=== PATIENT | male | born 1955 | race Caucasian/White ===

== ENCOUNTER 2018-03-27 14:33 | Emergency (ER) | payer OTHER ==
[2018-03-27 14:39] VITALS: BP 124/84; PULSE 71; TEMP 97.8; BMI 24.3
[2018-03-27] MEDS ORDERED: AMPICILLIN NA/SULBACTAM NA 3 GM VIAL ONE (15:41)
[2018-03-27] MEDS ORDERED: AMPICILLIN NA/SULBACTAM NA 3 GM in SODIUM CHLORIDE 100 ML IVPB ONE (15:45)
[2018-03-27] MEDS ORDERED: DIPHTH,PERTUSS(ACELL),TET 0.5 ML DISP.SYRIN IM ONE (15:48)
--- NOTE | 2018-03-27 16:25 | PDOC ---
History of Present Illness - General History Source: Patient Exam Limitations: No Limitations - History of Present Illness Initial Comments: 03/27/18 16:27 The patient is a 62 year old male, with a significant PMH of Type 2 diabetes ( recently diagnosed 4 months ago), who presents to the emergency department for evaluation of a dog bite that occurred yesterday. The patient states his friends dog bit him on the left posterior hand. The patient reports he scrubbed area thoroughly yesterday but pain progressively worsened today with associated erythema and edema. The patient denies any numbness or tingling. Denies fevers chills, and nausea Allergies: NKDA Past surgical history: None reported Social history: None reported PCP: Barrie Rivera <Tasha Khan - Last Filed: 03/27/18 16:30> <Tashi Loya - Last Filed: 03/27/18 17:30> - General Chief Complaint: Bite Stated Complaint: LEFT HAND DOG BITE Time Seen by Provider: 03/27/18 15:54 Past History <Tasha Khan - Last Filed: 03/27/18 16:30> - Past Medical History COPD: No Diabetes: Yes HTN: Yes Hypercholesterolemia: Yes Other medical history: HARD OF HEARING, USES HEARING AID - Suicide/Smoking/Psychosocial Hx Smoking History: Never smoked Have you smoked in the past 12 months: Yes Number of Cigarettes Smoked Daily: 20 Information on smoking cessation initiated: Yes Hx Alcohol Use: No <Tashi Loya - Last Filed: 03/27/18 17:30> - Past Medical History Allergies/Adverse Reactions: Allergies Allergy/AdvReac Type Severity Reaction Status Date / Time No Known Allergies Allergy Verified 03/27/18 14:33 Home Medications: Ambulatory Orders Amox-Tr/K Cl [Augmentin 875-125mg Tablet -] 1 tab PO BID #10 tablet 03/27/18 Aspirin [Aspirin EC] 81 mg PO DAILY 03/27/18 Glipizide 10 mg PO DAILY 03/27/18 Metformin HCl [Glucophage] 500 mg PO DAILY 03/27/18 Review of Systems - Review of Systems Able to Perform ROS?: Yes Comments:: 03/27/18 16:27 GENERAL/CONSTITUTIONAL: No fever or chills. No weakness. HEAD, EYES, EARS, NOSE AND THROAT: No change in vision. No ear pain or discharge. No sore throat. CARDIOVASCULAR: No chest pain or shortness of breath. RESPIRATORY: No cough, wheezing, or hemoptysis. GASTROINTESTINAL: No nausea, vomiting, diarrhea or constipation. GENITOURINARY: No dysuria, frequency, or change in urination. MUSCULOSKELETAL: No joint or muscle swelling or pain. No neck or back pain. SKIN: +Laceration of the left hand. NEUROLOGIC: No headache, vertigo, loss of consciousness, or change in strength/ sensation. ENDOCRINE: No increased thirst. No abnormal weight change. HEMATOLOGIC/LYMPHATIC: No anemia, easy bleeding, or history of blood clots. ALLERGIC/IMMUNOLOGIC: No hives or skin allergy. <Tasha Khan - Last Filed: 03/27/18 16:30> *Physical Exam - Vital Signs Last Vital Signs Temp Pulse Resp BP Pulse Ox 97.8 F 71 18 124/84 98 03/27/18 14:33 03/27/18 14:33 03/27/18 14:33 03/27/18 14:33 03/27/18 14:33 - Physical Exam Comments: 03/27/18 16:28 GENERAL: Awake, alert, and fully oriented, in no acute distress HEAD: No signs of trauma EXTREMITIES:+Full flexion and extension of fingers with aggression of pain. Normal range of motion, no edema. No clubbing or cyanosis. No cords. NEUROLOGICAL: No sensory deficit. SKIN: +Numerous punctate wound of the dorsum of the left hand. Generalized erythema and induration of the wrist to the MCP joint. Tenderness to palpation. No sensory deficit. Good capillary refill. <Tasha Khan - Last Filed: 03/27/18 16:30> - Vital Signs Last Vital Signs Temp Pulse Resp BP Pulse Ox 97.8 F 71 18 124/84 98 03/27/18 14:33 03/27/18 14:33 03/27/18 14:33 03/27/18 14:33 03/27/18 14:33 <Tashi Loya - Last Filed: 03/27/18 17:30> ED Treatment Course - Medications Given in the ED: ED Medications Discontinued Medications Generic Name Dose Route Start Last Admin Trade Name Freq PRN Reason Stop Dose Admin Ampicillin Sodium/Sulbactam 100 mls @ 200 mls/hr 03/27/18 15:45 03/27/18 16: 00 Sodium 3 gm/ Sodium Chloride IVPB 03/27/18 16:14 200 mls/hr ONCE ONE Administration <Tasha Khan - Last Filed: 03/27/18 16:30> Medical Decision Making - Medical Decision Making 03/27/18 17:19 Patient has type 2 diabetes, diagnosed 4 months ago, on oral agents, with sugars now in the 100-120 range. He was bitten by a friend's dog yesterday on the left hand, dorsum, and has increased redness and swelling today. 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 There are multiple puncture wounds of the dorsum of the left hand, with mild swelling and induration, and mild warmth. There is minimal tenderness to palpation in no pain with flexion and extension of that digits. Pulses are full. Capillary refill intact to all 5 digits, and no distal sensory or motor deficits. X-rays negative for foreign body. The potential seriousness of hand infections, especially from dog bites, was discussed with the patient and his . Absolute rest and elevation was prescribed, along with intravenous antibiotics, followed by oral antibiotics. The need for careful and timely follow-up was emphasized, with instructions to return to the emergency room in 24 hours for recheck of the wounds, or to see primary physician Dr. Rivera if preferable. However, 24 hours should not combine without having a physician check the wound and modify therapy if necessary. The hand was placed in a volar splint, the arm in a sling for rest and elevation , and discharged with his in no significant pain or other distress to follow-up as recommended. <Tashi Loya - Last Filed: 03/27/18 17:30> *DC/Admit/Observation/Transfer - Attestations Scribe Attestion: 03/27/18 16:29 Documentation prepared by Tasha Khan, acting as medical office manager for Tashi Aiken MD. <Tasha Khan - Last Filed: 03/27/18 16:30> - Discharge Dispostion Decision to Admit order: No <Tashi Loya - Last Filed: 03/27/18 17:30> Diagnosis at time of Disposition: Dog bite of hand Qualifiers: Encounter type: initial encounter Laterality: left Qualified Code(s): S61.452A - Open bite of left hand, initial encounter - Discharge Dispostion Disposition: HOME Condition at time of disposition: Improved - Prescriptions Prescriptions: Amox-Tr/K Cl [Augmentin 875-125mg Tablet -] 1 tab PO BID #10 tablet - Referrals Referrals: Barrie Rivera MD [Primary Care Provider] - 24 hours - Patient Instructions Printed Discharge Instructions: How to Care for a Domestic Animal Bite Additional Instructions: Hand infections from dog bites can be serious, progress rapidly, and resultant considerable disability. It is vitally important that you rest the hand, keep it splinted and elevated with a sling, take the antibiotics as directed, and follow-up with physician at prescribed intervals for reevaluation. Is especially important to be checked after the first 24 hours of antibiotic therapy to make sure the infection is not worsening. Either see your primary physician or return to the emergency room tomorrow for recheck of your hand and modification of therapy as needed. If you did not comply with these recommendations you risk a serious hand infection and subsequent disability. - Post Discharge Activity
== END 2018-03-27 17:35 | disposition home or self-care (01) ==
LOC: FER 14:33
PROC: 3E0234Z Introduction of Serum, Toxoid and Vaccine into Muscle, Percutaneous Approach (ICD-10-PCS; principal; 2018-03-27)
PROC: 3E03329 Introduction of Other Anti-infective into Peripheral Vein, Percutaneous Approach (ICD-10-PCS; 2018-03-27)
DX: S61.452A Open bite of left hand, initial encounter (principal); W54.0XXA Bitten by dog, initial encounter; Y93.89 Activity, other specified; Y92.410 Unspecified street and highway as the place of occurrence of the external cause; E11.9 Type 2 diabetes mellitus without complications; I10 Essential (primary) hypertension; Z87.891 Personal history of nicotine dependence; E78.00 Pure hypercholesterolemia, unspecified
CPT/HCPCS: 73130-TC-LR-FY; 90715; 99284-25